=== PATIENT | male | born 2000 | race Two or more races ===

== ENCOUNTER 2021-02-05 16:32 | Emergency (ER) | payer BC, SELFPAY ==
--- NOTE | 2021-02-05 16:49 | HMH.EDUTC ---
[facility] [place] Disposition Condition on Discharge: Good <William Padilla - Last Filed: 02/05/21 18:51> <Luke Reveles - Last Filed: 02/06/21 12:54> Clinical Impression: Peptic ulcer disease Disposition: Home, Self-Care Instructions: DI for Dyspepsia Prescriptions: Sucralfate [Carafate 1gm Tab] 1 gm PO BID #10 tab Transmission Status: Received by [facility] #[id number] Referrals: PCP,No [Primary Care Provider] - Deshaun Gonsales MD [Staff Physician] - Medical Decision Making - Medical Records Medical records reviewed: Yes: I reviewed the patient's medical records. - Oliver Inquiry Pt receiving controlled substance: No - Lab Data Result diagrams: 02/05/21 17:30 02/05/21 17:30 - CT Data CT Scan: Abdomen, Pelvis Time Received: 18:[address] Reviewed: Yes: I have reviewed the patient's CT results, I have viewed the radiologist's interpretation Preliminary Findings: Normal/NAD - Reevaluation(s) Time: 18:56 <William Padilla - Last Filed: 02/05/21 18:51> - Medical Records Medical records reviewed: No: I reviewed the patient's medical records. - Oliver Bundy Pt receiving controlled substance: No - Lab Data Result diagrams: 02/05/21 17:30 02/05/21 17:30 <Luke Reveles - Last Filed: 02/06/21 12:54> Vital Signs: 02/05/21 16:57 02/05/21 17:08 02/05/21 19:02 Temperature 98.2 F 98.7 F 98 F Temperature Source Tympanic Oral Oral Pulse Rate 78 Pulse Rate [Right] 110 H 105 H Respiratory Rate 16 16 16 Blood Pressure 138/72 Blood Pressure [Right Arm] 146/72 H 137/81 Blood Pressure Mean [Right Arm] 96 99 Blood Pressure Source [Right Arm] Automatic Cuff Blood Pressure Position Sitting Blood Pressure Position [Right Arm] Sitting Sitting 02 Sat by Pulse Oximetry 96 98 Oxygen Delivery Method Room Air Room Air Room Air - Lab Data Lab Results 02/05/21 17:30: WBC 6.6, RBC 5.09, Hgb 16.4, Hct 47.2, MCV 92.7, MCH 32.1 H, MCHC 34.7, RDW 13.1, Plt Count 194, MPV 7.9, Neut % (Auto) 60.9, Lymph % (Auto) 29.6, [place] % (Auto) 6.6, Eos % (Auto) 2.2, Baso % (Auto) 0.8, Neut # (Auto) 4.0, Lymph # (Auto) 2.0, [place] # (Auto) 0.4, Eos # (Auto) 0.2, Baso # (Auto) 0.1 02/05/21 17:30: Sodium 141, Potassium 4.1, Chloride 105, Carbon Dioxide 23, Anion Gap 17.1 H, BUN 11, Creatinine 1.00, Estimated Creat Clear 121, Estimated GFR 95, Est GFR ( Amer) 115, Glucose 93, Calcium 9.8, Total Bilirubin 1.3, AST 36, ALT 15, Alkaline Phosphatase 74, Total Protein 8.6 H, Albumin 4.9, Globulin 3.7 H, Albumin/Globulin Ratio 1.3, Lipase 86 02/05/21 18:05: Lactate 2.4 H 02/05/21 18:52: Urine Color Yellow, Urine Appearance Clear, Urine pH 6.0, Ur Specific [place] 1.025, Urine Protein Negative, Urine Glucose (UA) Negative, Urine Ketones Negative, Urine Blood Negative, Urine Nitrate Negative, Urine Bilirubin Negative, Urine Urobilinogen 0.2, Ur Leukocyte Esterase Negative, Urine RBC None, Urine WBC Occasional, Ur Squamous Epith Cells None, Urine Bacteria None Orders (Tests/Meds): ED MEDICATIONS Discontinued Medications Generic Name Dose Route Start Last Admin Trade Name Carole PRN Reason Stop Dose Admin Famotidine 20 mg 02/05/21 17:22 02/05/21 17:43 Famotidine 20mg/2ml Vial IV 02/05/21 17:23 20 mg ONCE ONE Administration Sodium Chloride 1,000 mls @ 999 mls/hr 02/05/21 17:30 02/05/21 17:44 Sod Chlor 0.9% 1000ml Bag IV 02/05/21 18:30 999 mls/hr .Q1H1M RICKY Administration Ondansetron HCl 4 mg 02/05/21 17:21 02/05/21 17:43 Ondansetron 4mg/2ml Vial IV 02/05/21 17:22 4 mg ONCE ONE Administration Sodium Chloride 8 ml 02/05/21 17:22 02/05/21 17:44 Sodium Chloride 0.9% 10ml Vial IV 03/07/21 17:21 8 ml NEEDED PRN Administration dilute pepcid - CT Data Findings Narrative: Constipation (William Padilla) - Reevaluation(s) Reevaluation #1: On reevaluation, the patient is feeling better. Repeat abdominal exam is benign. No acute abdomen. Patient is tolera
[2021-02-05 16:57] VITALS: BP 146/72; PULSE 110; RESP 16; TEMP 36.8; O2SAT 96; BMI 21.7
[2021-02-05 17:08] VITALS: BP 137/81; PULSE 105; RESP 16; TEMP 37.1; O2SAT 98; BMI 21.7
--- NOTE | 2021-02-05 17:22 | CT_ITS ---
PROCEDURE: CT ABDOMEN PELVIS WO CON CLINICAL INDICATION: pain Right-sided abdominal pain COMPARISON: No exams were available for comparison TECHNIQUE: Axial images obtained with sagittal and coronal reformats. All CT scans at the facility use one or more dose reduction, viz: automated exposure control, ma/kV adjustment per patient size (including targeted exams where dose is matched to indication, i.e. head), or iterative reconstruction technique. FINDINGS: LOWER THORAX: No acute finding ABDOMEN & PELVIS: The liver, spleen, pancreas, adrenal glands, and kidneys have unremarkable unenhanced CT appearance. Mild distention of the stomach. Moderate amount of retained colonic feces. The appendix is not clearly delineated with certainty. Multiple unopacified bowel loops in the abdomen or pelvis which could obscure or mimic pathology. If symptoms persist, consider repeat exam with IV and oral contrast. Mildly distended urinary bladder. No intestinal obstruction or free air.. No acute bony findings. IMPRESSION: Moderate amount of retained colonic feces. Multiple unopacified bowel loops in the abdomen or pelvis which could obscure or mimic pathology. If symptoms persist, consider repeat exam with IV and oral contrast.. No definite acute finding. Dictated by: Ross Shah MD 02/06/2021 06:24 Ross Shah MD in [facility] 02/06/2021 06:24
[2021-02-05 17:46] LABS: Basophils # 0.1 K/mm3 (0-0.2); Basophils % 0.8 % (0.1-2.0); Eosinophils # 0.2 K/mm3 (0.0-0.4); Eosinophils % 2.2 % (0.1-12.0); Hematocrit 47.2 % (42.0-52.0); Hemoglobin 16.4 g/dL (14.1-18.0); Lymphocytes % 29.6 % (10-50); Mean Corpuscular HGB Conc 34.7 g/dL (31.8-35.4); Mean Corpuscular Hemoglobin 32.1 pg (27.0-31.2); Mean Corpuscular Volume 92.7 fl (80-94); Mean Platelet Volume 7.9 fl (7.4-10.4); Monocytes # 0.4 K/mm3 (0.1-1.0); Monocytes % 6.6 % (1.7-9.3); Neutrophils % 60.9 % (37.0-80.0); Platelet Count 194 K/mm3 (142-424); Red Blood Count 5.09 M/mm3 (4.60-6.20); Red Cell Distribution Width 13.1 % (11.5-17.5); White Blood Count 6.6 K/mm3 (4.5-13.0)
[2021-02-05 17:48] LABS: Chloride 105 mmol/L (98-107); Potassium 4.1 mmoL/L (3.5-5.1); Sodium 141 mmol/L (136-145)
[2021-02-05 17:50] LABS: Blood Urea Nitrogen 11 mg/dl (9-20); Creatinine Clearance Estimated 121 mL/min (50-200); Estimated Glomerular Filt Rate 95 ml/min (>60); GFR (African American) 115 ML/MIN (>60)
[2021-02-05 17:51] LABS: Alanine Aminotransferase 15 U/L (12-78); Albumin Level 4.9 g/dl (3.5-5.0); Albumin/Globulin Ratio 1.3 (1.1-1.8); Alkaline Phosphatase 74 U/L (38-126); Anion Gap 17.1 mEq/L (5-15); Aspartate Amino Transferase 36 U/L (17-59); Bilirubin,Total 1.3 mg/dl (0.2-1.3); Calcium 9.8 mg/dl (8.4-10.2); Carbon Dioxide 23 mmol/L (22.0-30.0); Globulin 3.7 g/dL (1.3-3.2); Glucose 93 mg/dl (74-100); Lipase 86 U/L (23-300); Total Protein,Serum 8.6 g/dl (6.3-8.2)
[2021-02-05 18:22] LABS: Lactic Acid 2.4 mmol/L (0.7-2.1)
[2021-02-05 18:57] LABS: Microscopic, Urine URINE MICROSCOPIC (MICROSCOPIC)
[2021-02-05 18:59] LABS: Appearance,Urine CLEAR (Clear); Bilirubin,Urine Negative (Negative); Blood, Urine Negative (Negative); Color,Urine YELLOW (Yellow); Glucose,Urine (UA) Negative (Negative); Ketones,Urine Negative (Negative); Leukocyte Esterase,Urine Negative (Negative); Nitrate,Urine Negative (Negative); Protein,Urine Negative (Negative); Specific Gravity, Urine 1.025 (1.005-1.030); Urobilinogen,Urine 0.2 EU/dl (0.2)
[2021-02-05 19:02] VITALS: BP 138/72; PULSE 78; RESP 16; TEMP 36.6; O2SAT 98
[2021-02-05 19:55] LABS: WBC,Urine Occasional #/hpf (0-3)
== END 2021-02-05 19:04 | disposition home or self-care (01) ==
LOC: UTC 16:48 → ER 17:04
PROVIDERS: Emergency Provider Emergency Medicine
DX: K27.9 Peptic ulcer, site unspecified, unspecified as acute or chronic, without hemorrhage or perforation (principal); F17.210 Nicotine dependence, cigarettes, uncomplicated
CPT/HCPCS: 74176; 80053; 81001; 83605; 83690; 85025; 96365; 96376; 99282; J2405

== ENCOUNTER → 2021-02-12 08:35 | Outpatient (CLI) | payer BC, SELFPAY ==
--- NOTE | 2021-02-12 08:40 | US_ITS ---
PROCEDURE: US GALLBLADDER CLINICAL INDICATION: RUQ Pain COMPARISON: No exams were available for comparison FINDINGS: Pancreas: Pancreas has an unremarkable appearance. Pancreatic tail is not well delineated. Liver: Unremarkable. There is appropriate direction of blood flow within a non dilated portal vein. Right kidney: Unremarkable appearing. No hydronephrosis. Gallbladder: No stones are evident. There is no gallbladder wall thickening. Common duct is normal in diameter. IMPRESSION: Negative gallbladder ultrasound. No stones evident. Dictated by: Ross Shah MD 02/12/2021 14:39 Ross Shah MD in [facility] 02/12/2021 14:39
== END ==
PROVIDERS: PCP Nurse Practitioner Family; Visit Provider Nurse Practitioner Family
DX: R10.11 Right upper quadrant pain (principal)
CPT/HCPCS: 76705

== ENCOUNTER 2021-02-18 21:47 | Emergency (ER) | payer BC, SELFPAY ==
[2021-02-18 21:49] VITALS: BP 131/66; PULSE 97; RESP 16; TEMP 36.4; O2SAT 96; BMI 21.7
--- NOTE | 2021-02-18 22:11 | CT_ITS ---
PROCEDURE: CT ABDOMEN PELVIS W CON CLINICAL INDICATION: abd pain Abdominal pain with vomiting, right-sided abdominal pain COMPARISON: CT CT ABDOMEN PELVIS WO CON from 02/05/2021 TECHNIQUE: IV Contrast: 75ML Isovue 370 Oral Contrast None Axial images obtained with sagittal and coronal reformats. All CT scans at the facility use one or more dose reduction, viz: automated exposure control, ma/kV adjustment per patient size (including targeted exams where dose is matched to indication, i.e. head), or iterative reconstruction technique. FINDINGS: LOWER THORAX: No acute finding ABDOMEN & PELVIS: Stomach is mildly distended. The liver, spleen, adrenal glands, pancreas, and kidneys have an unremarkable appearance. There is a mild amount of retained colonic feces. Multiple unopacified bowel loops in the abdomen or pelvis which could obscure or mimic pathology. If symptoms persist, consider repeat exam with IV and oral contrast.. The appendix is not clearly delineated. No evidence of appendicitis. No intestinal obstruction or free air. No acute bony findings. IMPRESSION: Mildly distended stomach. Please correlate clinically for the possibility of gastro paresis. Mild amount of retained colonic feces. Multiple unopacified bowel loops in the abdomen or pelvis which could obscure or mimic pathology. If symptoms persist, consider repeat exam with IV and oral contrast. Dictated by: Ross Shah MD 02/19/2021 07:00 Ross Shah MD in [facility] 02/19/2021 07:00
[2021-02-18 22:24] LABS: Basophils # 0.1 K/mm3 (0-0.2); Eosinophils # 0.1 K/mm3 (0.0-0.4); Eosinophils % 1.5 % (0.1-12.0); Hematocrit 46.9 % (42.0-52.0); Hemoglobin 15.8 g/dL (14.1-18.0); Lymphocytes # 2.5 K/mm3 (0.7-4.5); Lymphocytes % 38.5 % (10-50); Mean Corpuscular HGB Conc 33.7 g/dL (31.8-35.4); Mean Corpuscular Hemoglobin 31.8 pg (27.0-31.2); Mean Corpuscular Volume 94.2 fl (80-94); Mean Platelet Volume 7.7 fl (7.4-10.4); Monocytes # 0.4 K/mm3 (0.1-1.0); Monocytes % 5.8 % (1.7-9.3); Neutrophils # 3.5 K/mm3 (1.8-7.8); Neutrophils % 53.2 % (37.0-80.0); Platelet Count 238 K/mm3 (142-424); Red Blood Count 4.97 M/mm3 (4.60-6.20); Red Cell Distribution Width 12.9 % (11.5-17.5); White Blood Count 6.6 K/mm3 (4.5-13.0)
[2021-02-18 22:32] LABS: Alanine Aminotransferase 16 U/L (12-78); Albumin Level 5.1 g/dl (3.5-5.0); Albumin/Globulin Ratio 1.5 (1.1-1.8); Alkaline Phosphatase 61 U/L (38-126); Amylase 160 U/L (30-110); Aspartate Amino Transferase 37 U/L (17-59); Bilirubin,Total 1.1 mg/dl (0.2-1.3); Blood Urea Nitrogen 14 mg/dl (9-20); Calcium 9.4 mg/dl (8.4-10.2); Carbon Dioxide 25 mmol/L (22.0-30.0); Chloride 104 mmol/L (98-107); Creatinine Clearance Estimated 110 mL/min (50-200); Estimated Glomerular Filt Rate 85 ml/min (>60); GFR (African American) 103 ML/MIN (>60); Globulin 3.3 g/dL (1.3-3.2); Glucose 102 mg/dl (74-100); Lipase 121 U/L (23-300); Sodium 140 mmol/L (136-145); Total Protein,Serum 8.4 g/dl (6.3-8.2)
[2021-02-18 22:44] LABS: C-Reactive Protein < 0.3 mg/L (0-4)
[2021-02-18 22:54] LABS: Erythrocyte Sedimentation Rate 6 mm/hr (0-15); Procalcitonin < 0.030 ng/mL (0.0-2.0)
--- NOTE | 2021-02-18 23:35 | HMH.EDNVD ---
ED Disposition Clinical Impression: Vasovagal episode Abdominal pain Qualifiers: Abdominal location: epigastric Qualified Code(s): R10.13 - Epigastric pain Disposition: Home, Self-Care Condition on Discharge: Good Instructions: DI for Acute Abdominal Pain Additional Instructions: use meds and call pcp in am Referrals: Taj Campa APRN [Primary Care Provider] - - Critical Care Critical Care Time: No Attestation: On 02/18/21, the high probability of a clinically significant, sudden or life threatening deterioration of the following system(s) required my full and direct attention, intervention and personal management. The time I documented below is in addition to time spent performing reported procedures but includes the following listed in this critical care notation. Medical Decision Making - Medical Records Medical records reviewed: Yes: I reviewed the patient's medical records. - Oliver Inquiry Pt receiving controlled substance: No Vital Signs: 02/18/21 21:49 Temperature 97.5 F L Temperature Source Oral Pulse Rate [Right] 97 H Respiratory Rate 16 Blood Pressure [Right Arm] 131/66 Blood Pressure Mean [Right Arm] 87 02 Sat by Pulse Oximetry 96 - Lab Data Lab results reviewed: Yes: I reviewed the patient's lab results. Lab Results 02/18/21 22:10: WBC 6.6, RBC 4.97, Hgb 15.8, Hct 46.9, MCV 94.2 H, MCH 31.8 H, MCHC 33.7, RDW 12.9, Plt Count 238, MPV 7.7, Neut % (Auto) 53.2, Lymph % (Auto) 38.5, [place] % (Auto) 5.8, Eos % (Auto) 1.5, Baso % (Auto) 1.0, Neut # (Auto) 3.5, Lymph # (Auto) 2.5, [place] # (Auto) 0.4, Eos # (Auto) 0.1, Baso # (Auto) 0.1, ESR 6 02/18/21 22:10: Sodium 140, Potassium 5.0, Chloride 104, Carbon Dioxide 25, Anion Gap 16.0 H, BUN 14, Creatinine 1.10, Estimated Creat Clear 110, Estimated GFR 85, Est GFR ( Amer) 103, Glucose 102 H, Calcium 9.4, Total Bilirubin 1.1, AST 37, ALT 16, Alkaline Phosphatase 61, C-Reactive Protein < 0.3, Total Protein 8.4 H, Albumin 5.1 H, Globulin 3.3 H, Albumin/Globulin Ratio 1.5, Amylase 160 H, Lipase 121, Procalcitonin < 0.030 Result diagrams: 02/18/21 22:10 02/18/21 22:10 Orders (Tests/Meds): ED MEDICATIONS Generic Name Dose Route Start Last Admin Trade Name Freq PRN Reason Stop Dose Admin Sodium Chloride 1,000 mls @ 999 mls/hr 02/18/21 22:15 02/18/21 22:14 Sod Chlor 0.9% 1000ml Bag IV 02/18/21 23:15 999 mls/hr .Q1H1M RICKY Administration Sodium Chloride 8 ml 02/18/21 22:12 Sodium Chloride 0.9% 10ml Vial IV 03/20/21 22:11 NEEDED PRN dilute pepcid Discontinued Medications Generic Name Dose Route Start Last Admin Trade Name Freq PRN Reason Stop Dose Admin Famotidine 20 mg 02/18/21 22:12 02/18/21 22:14 Famotidine 20mg/2ml Vial IV 02/18/21 22:13 20 mg ONCE ONE Administration Iopamidol 70 ml 02/18/21 23:07 02/18/21 23:09 Iopamidol-370 (76%);100ml Bottle IV 02/18/21 23:08 70 ml ONCE ONE Administration Ketorolac Tromethamine 30 mg 02/18/21 22:12 02/18/21 22:14 Ketorolac 30mg/Ml Vial IV 02/18/21 22:13 30 mg ONCE ONE Administration Metoclopramide HCl 10 mg 02/18/21 22:12 02/18/21 22:14 Metoclopramide Hcl 10mg/2ml Vial IVP 02/18/21 22:13 10 mg ONCE ONE Administration Ondansetron HCl 4 mg 02/18/21 22:12 02/18/21 22:14 Ondansetron 4mg/2ml Vial IV 02/18/21 22:13 4 mg ONCE ONE Administration Sodium Chloride 10 ml 02/18/21 23:07 02/18/21 23:09 Sodium Chloride 0.9% 10ml Syr (Rad Only) IV 02/18/21 23:08 10 ml ONCE ONE Administration ORDERS Category Date Time Status CT abdomen pelvis w con Stat Cat Scan 02/18/21 22:11 Taken Urinalysis and Microscopic Stat Lab 02/18/21 22:11 Ordered - CT Data CT Scan: Abdomen, Pelvis Time Received: 23:[address] Reviewed: Yes: I have viewed the radiologist's interpretation Preliminary Findings: Normal/NAD Medical Decision Narrative: pt with prob vasovagal episodes assoc with ulcer dis will need f
[2021-02-19 00:10] VITALS: BP 134/78; PULSE 87; RESP 14; TEMP 36.5; O2SAT 98
== END 2021-02-19 00:24 | disposition home or self-care (01) ==
PROVIDERS: Emergency Provider Emergency Medicine; PCP Nurse Practitioner Family
DX: R55 Syncope and collapse (principal); R10.13 Epigastric pain
CPT/HCPCS: 74177; 80053; 82150; 83690; 84145; 85025; 85651; 86140; 96375; 99282; J2405; Q9967

== ENCOUNTER → 2021-03-05 10:08 | Outpatient (CLI) | payer BC, SELFPAY ==
--- NOTE | 2021-03-05 10:17 | NM_ITS ---
PROCEDURE: NM HEPATOBILIARY WO PHARM CLINICAL INDICATION: abd pain Right upper quadrant pain COMPARISON: No exams were available for comparison TECHNIQUE: DOSE: 7.90 mCi technetium Choletec Fatty meal with Ensure FINDINGS: Homogeneous activity is present within the hepatic parenchyma. Activity is present in the gallbladder by 4 minutes. Activity is present in the small bowel by 13 minutes. The gallbladder ejection fraction is calculated to be 97 percent. No pain reported with fatty meal. IMPRESSION: Unremarkable hepatobiliary scan with normal gallbladder ejection fraction Dictated by: Ross Shah MD 03/05/2021 15:25 Ross Shah MD in [facility] 03/05/2021 15:25
--- NOTE | 2021-03-05 11:03 | HMH.ITSHM ---
Current Home Medications as stated by this patient Jose Robins or technology sales representative. []PEPCID
== END ==
PROVIDERS: PCP Physician Assistant; Visit Provider Physician Assistant
DX: R10.9 Unspecified abdominal pain (principal)
CPT/HCPCS: 78226; A9537

== ENCOUNTER 2021-03-28 10:11 | Emergency (ER) | payer BC, SELFPAY ==
[2021-03-28 10:17] VITALS: BP 137/87; PULSE 74; RESP 17; TEMP 36.7; O2SAT 97; BMI 21.7
--- NOTE | 2021-03-28 10:24 | HMH.EDUTC ---
[facility] [place] Clinical Impression: Right shoulder pain Qualifiers: Chronicity: acute Qualified Code(s): M25.511 - Pain in right shoulder Disposition: Home, Self-Care Condition on Discharge: Good Instructions: DI for Shoulder Pain Additional Instructions: Rest the extremity, Elevate the extremity as tolerated while you are resting. Take ibuprofen for pain. I sent in a prescription to your pharmacy. Follow up with Dr. Kaye (orthopedics). I put in a referral but you need to call his office and schedule an appointment. Follow up with your regular doctor. We will give you a list of primary care physicians that are taking new patients. GO TO THE ER FOR ANY WORSENING SYMPTOMS Prescriptions: Ibuprofen [Ibuprofen 800mg Tablet] 800 mg PO Q8HP PRN #30 tab PRN Reason: Moderate Pain Transmission Status: Received by [facility] Referrals: Petey Cortes MD [Primary Care Provider] - Forms: Work/School Release Time of Disposition: 10:36 Medical Decision Making - Medical Records Medical records reviewed: No: I reviewed the patient's medical records. - Oliver Inquiry Pt receiving controlled substance: No Vital Signs: 03/28/21 10:17 03/28/21 10:25 Temperature 98.0 F 98.0 F Temperature Source Oral Oral Pulse Rate 74 Pulse Rate [Left] 74 Respiratory Rate 17 17 Blood Pressure 137/87 Blood Pressure [Right Arm] 137/87 Blood Pressure Mean [Right Arm] 103 Blood Pressure Source Automatic Cuff Blood Pressure Source [Right Arm] Automatic Cuff Blood Pressure Position Sitting Blood Pressure Position [Right Arm] Sitting 02 Sat by Pulse Oximetry 97 Oxygen Delivery Method Room Air Room Air [facility] [place] - General Stated complaint: right shoulder pain, no accident Time Seen by Provider: 03/28/21 10:24 Mode of Arrival: Ambulatory Source of Information: Patient Limitations: No Limitations Description of Symptoms (Recalled from Triage Doc. by RN): right shoulder pain x 1year and has gotten worse HEENT Symptoms (Recalled from RN notes): No Resp Symptoms (Recalled from RN notes): No Skin Symptoms (Recalled from RN notes): No MS Symptoms (Recalled from RN notes): Yes Functional Status (Recalled from RN notes): wnl - History of Present Illness Provider Complaint: He states that he has a long history of right shoulder pain. He originally hurt it playing school sports. He has been taking ibuprofen and naproxen for his pain, but he states that they are not helping very much. He has had it x-rayed multiple times in the past. He has never followed up with ortho to have mri or other things done. - Related Data Home Medications Medication Instructions Recorded Confirmed Famotidine [Pepcid] 20 mg PO DAILY 02/05/21 03/12/21 Previous Rx's Medication Instructions Recorded dicyclomine 10 mg capsule 10 mg PO BID #60 cap 02/06/21 omeprazole 40 mg capsule,delayed 40 mg PO ONCE #90 cap 03/12/21 release sucralfate 1 gram tablet 1 g PO QACHS #120 tab 03/12/21 hyoscyamine sulfate 0.375 mg 0.375 mg PO Q12H #60 tab 03/14/21 tablet,extended release,12 hr Ibuprofen [Ibuprofen 800mg 800 mg PO Q8HP PRN #30 tab 03/28/21 Tablet] Allergies Allergy/AdvReac Type Severity Reaction Status Date / Time No Known Allergies Allergy Verified 03/28/21 10:28 - Worker's Comp Is this a Worker's Comp case?: No [facility] History - Hepatitis A Screen Drug use history?: No High risk sexual behaviors?: No History of sexually transmitted infection?: No Currently employed?: No Childcare worker?: No Do you have indoor plumbing?: Yes Do you have electricity?: Yes Attestation statement:: This patient has been screened for Hepatitis A risk factors. I have reviewed the patient's past medical history: Yes Medical History: Denies:: Cancer, Diabetes Mellitus Type 1, Diabetes Mellitus Type 2, MRSA Other Surgeries: Yes: No Previous Surgery Amputation: No - Social History Smoking Status: Current wanda
[2021-03-28 10:25] VITALS: BP 137/87; PULSE 74; RESP 17; TEMP 36.7; O2SAT 97
== END 2021-03-28 10:38 | disposition home or self-care (01) ==
PROVIDERS: Emergency Provider Nurse Practitioner Family; PCP Emergency Medicine
DX: M25.511 Pain in right shoulder (principal); F17.210 Nicotine dependence, cigarettes, uncomplicated
CPT/HCPCS: 99202; G0463

== ENCOUNTER 2021-03-29 01:14 | Emergency (ER) | payer BC, SELFPAY ==
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
[2021-03-29 01:31] VITALS: BP 144/54; PULSE 76; RESP 18; TEMP 36.4; O2SAT 98; BMI 21.7
--- NOTE | 2021-03-29 02:10 | PC.NURSE ---
[facility] office and zainab sullivan at bed side.
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
[2021-03-29 02:45] VITALS: BP 136/76; PULSE 74; RESP 16; TEMP 36.3; O2SAT 98
== END 2021-03-29 02:50 | disposition home or self-care (01) ==
PROVIDERS: Emergency Provider Emergency Medicine; PCP Physician Assistant
DX: S71.111A Laceration without foreign body, right thigh, initial encounter (principal); X99.1XXA Assault by knife, initial encounter; Y92.9 Unspecified place or not applicable; Z23 Encounter for immunization
CPT/HCPCS: 12002; 90471; 90714; 99282

== ENCOUNTER 2021-04-09 18:24 | Emergency (ER) | payer BC, SELFPAY ==
[2021-04-09 19:00] VITALS: BP 116/75; PULSE 102; RESP 19; TEMP 37.1; O2SAT 100; BMI 19.3
[2021-04-09 19:22] LABS: UTC Strep Screen (Rapid) Negative (Negative)
--- NOTE | 2021-04-09 19:25 | HMH.EDUTC ---
[facility] [place] Clinical Impression: Upper respiratory infection, viral Disposition: Home, Self-Care Condition on Discharge: Good Instructions: DI for Viral Upper Respiratory Infection -- Adult Additional Instructions: No sign of a bacterial infection. Likely viral. Viruses can take 7-14 days to run their course. Nasal saline and bulb syringe or nose Daja to remove nasal drainage to help with nasal congestion. Hard to eat, drink, sleep with nasal congestion so important to keep this cleaned out. Monitor temp. Tylenol or Motrin as needed for pain or fever Encourage fluids, water, Gatorade, Powerade, Pedialyte if /toddler/child Warm salt water gargles Warm fluids Sore throat lozenges Sleep elevated Follow-up immediately for new or worsening symptoms or no noticeable improvement over the next 48-72 hours. Referrals: Anabelle Arizmendi PA [Primary Care Provider] - Time of Disposition: 19:37 Medical Decision Making - Loiver Inquiry Pt receiving controlled substance: No Vital Signs: 04/09/21 19:00 Temperature 98.7 F Temperature Source Oral Pulse Rate [Right Brachial] 102 H Respiratory Rate 19 Blood Pressure [Right Arm] 116/75 Blood Pressure Mean [Right Arm] 88 Blood Pressure Source [Right Arm] Automatic Cuff Blood Pressure Position [Right Arm] Sitting 02 Sat by Pulse Oximetry 100 Oxygen Delivery Method Room Air - Lab Data Lab Results 04/09/21 19:19: Strep Scn Rapid Clinic Negative Orders (Tests/Meds): ORDERS Category Date Time Status Strep Screen Confirmation Stat Micro 04/09/21 19:19 Received [facility] [place] - General Chief complaint: [facility] Stated complaint: sore throat,FU removal of stiches Time Seen by Provider: 04/09/21 19:33 Mode of Arrival: Ambulatory Source of Information: Patient Limitations: No Limitations Description of Symptoms (Recalled from Triage Doc. by RN): PATIENT C/O SORE THROAT, HEADACHE, AND CHILLS. ALSO NEEDS STITCHES REMOVED HEENT Symptoms (Recalled from RN notes): Yes Resp Symptoms (Recalled from RN notes): No Skin Symptoms (Recalled from RN notes): No MS Symptoms (Recalled from RN notes): No Functional Status (Recalled from RN notes): WNL - History of Present Illness Provider Complaint: 20 yr old male presents for sore throat,cough, nasal congestion and sinus pressure. pt states he also needs his stitches out. refused covid test - Related Data Home Medications Medication Instructions Recorded Confirmed Famotidine [Pepcid] 20 mg PO DAILY 02/05/21 04/04/21 Previous Rx's Medication Instructions Recorded dicyclomine 10 mg capsule 10 mg PO BID #60 cap 02/06/21 omeprazole 40 mg capsule,delayed 40 mg PO ONCE #90 cap 03/12/21 release sucralfate 1 gram tablet 1 g PO QACHS #120 tab 03/12/21 hyoscyamine sulfate 0.375 mg 0.375 mg PO Q12H #60 tab 03/14/21 tablet,extended release,12 hr Ibuprofen [Ibuprofen 800mg 800 mg PO Q8HP PRN #30 tab 03/28/21 Tablet] bacitracin 500 unit/gram topical 1 applic TOPICAL BID #28 g 04/04/21 ointment Allergies Allergy/AdvReac Type Severity Reaction Status Date / Time No Known Allergies Allergy Verified 04/04/21 09:49 - Worker's Comp Is this a Worker's Comp case?: No [facility] History - Hepatitis A Screen Drug use history?: No High risk sexual behaviors?: No History of sexually transmitted infection?: No Currently employed?: No Childcare worker?: No Do you have indoor plumbing?: Yes Do you have electricity?: Yes Attestation statement:: This patient has been screened for Hepatitis A risk factors. I have reviewed the patient's past medical history: Yes Medical History: Denies:: Cancer, Diabetes Mellitus Type 1, Diabetes Mellitus Type 2, MRSA Other Surgeries: Yes: No Previous Surgery Amputation: No - Social History Smoking Status: Never smoker Tobacco Type: smokeless tobacco # Packs/Day (cigarettes): 1 Alcohol Intake: never Alcohol Intake Frequency:: a few times a wee
[2021-04-09 19:40] VITALS: BP 116/75; PULSE 102; RESP 19; TEMP 37.1; O2SAT 100; BMI 19.3
[2021-04-09 19:41] VITALS: BP 116/75; PULSE 102; RESP 19; TEMP 37.1; O2SAT 100
== END 2021-04-09 19:42 | disposition home or self-care (01) ==
PROVIDERS: Emergency Provider Nurse Practitioner Family; PCP Physician Assistant
DX: J06.9 Acute upper respiratory infection, unspecified (principal)
CPT/HCPCS: 87880

== ENCOUNTER 2021-05-01 03:08 | Emergency (ER) | payer BC, SELFPAY ==
--- NOTE | 2021-05-01 03:10 | PC.NURSE ---
pt refuses to allow staff to give care. discussed the needs of patient. allowed us to place c-collar. staff at bedside obtaining bloodwork. md at bedside for trauma alert. states we can cancel and work him up here
[2021-05-01 03:16] VITALS: BP 140/80; PULSE 93; RESP 16; TEMP 36.7; O2SAT 98
--- NOTE | 2021-05-01 03:18 | PC.NURSE ---
pt upset with getting stuck for iv access. fsbs reported by electric bath attendant jem as 94 mg/dl. requested friend at bedside (had went out to move his car).
[2021-05-01 03:29] VITALS: BP 139/80; PULSE 94; RESP 16; O2SAT 95; BMI 19.8
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
[2021-05-01 03:32] LABS: POC Glucose,Bedside 94 (70-110)
--- NOTE | 2021-05-01 03:35 | ECG_ITS ---
APPROVED REPORT Exam: Resting ECG HR:83 bpm ECG Measurements Heart Rate 83 AXES VA 164 P 73 QRSd 106 QRS 61 QT 370 T 59 QTc 434 Conclusion Normal sinus rhythm Normal ECG Electronically signed by : Juan C Lind, 05/01/2021 19:50:19
[2021-05-01 03:36] LABS: Microscopic, Urine URINE MICROSCOPIC (MICROSCOPIC)
[2021-05-01 03:38] LABS: Basophils # 0.1 K/mm3 (0-0.2); Basophils % 0.6 % (0.1-2.0); Eosinophils # 0.1 K/mm3 (0.0-0.4); Eosinophils % 0.7 % (0.1-12.0); Hematocrit 43.7 % (42.0-52.0); Hemoglobin 15.3 g/dL (14.1-18.0); Lymphocytes % 23.2 % (10-50); Mean Corpuscular HGB Conc 35.1 g/dL (31.8-35.4); Mean Corpuscular Hemoglobin 31.9 pg (27.0-31.2); Mean Corpuscular Volume 90.9 fl (80-94); Mean Platelet Volume 7.8 fl (7.4-10.4); Monocytes # 0.5 K/mm3 (0.1-1.0); Monocytes % 5.6 % (1.7-9.3); Neutrophils % 69.9 % (37.0-80.0); Platelet Count 224 K/mm3 (142-424); Red Cell Distribution Width 12.7 % (11.5-17.5); White Blood Count 8.6 K/mm3 (4.5-13.0)
[2021-05-01 03:39] LABS: Appearance,Urine CLEAR (Clear); Bilirubin,Urine Negative (Negative); Blood, Urine Negative (Negative); Color,Urine YELLOW (Yellow); Glucose,Urine (UA) Negative (Negative); Ketones,Urine Negative (Negative); Leukocyte Esterase,Urine Negative (Negative); Nitrate,Urine Negative (Negative); Protein,Urine Negative (Negative); Specific Gravity, Urine <= 1.005 (1.005-1.030); Urobilinogen,Urine 0.2 EU/dl (0.2)
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
[2021-05-01 03:43] LABS: Chloride 100 mmol/L (98-107); Potassium 3.5 mmoL/L (3.5-5.1); Sodium 138 mmol/L (136-145)
[2021-05-01 03:45] LABS: Amylase 91 U/L (30-110); Bacteria,Urine Trace /lpf; Blood Urea Nitrogen 14 mg/dl (9-20); Creatinine Clearance Estimated 126 mL/min (50-200); Estimated Glomerular Filt Rate 108 ml/min (>60); GFR (African American) 130 ML/MIN (>60)
[2021-05-01 03:46] LABS: Alanine Aminotransferase 23 U/L (12-78); Albumin Level 4.8 g/dl (3.5-5.0); Albumin/Globulin Ratio 1.5 (1.1-1.8); Alkaline Phosphatase 84 U/L (38-126); Anion Gap 20.5 mEq/L (5-15); Aspartate Amino Transferase 34 U/L (17-59); Bilirubin,Total 1.1 mg/dl (0.2-1.3); Calcium 9.1 mg/dl (8.4-10.2); Carbon Dioxide 21 mmol/L (22.0-30.0); Globulin 3.3 g/dL (1.3-3.2); Glucose 101 mg/dl (74-100); Total Protein,Serum 8.1 g/dl (6.3-8.2)
[2021-05-01 03:47] LABS: Ethyl Alcohol 185 mg/dl (0-10)
[2021-05-01 03:50] LABS: Acetaminophen < 10 ug/ml (10-30); Lipase 52 U/L (23-300); Salicylate < 1.0 mg/dL (2.0-20.0)
[2021-05-01 03:52] LABS: Amphetamine/Metha Screen,Urine Negative ng/ml (<1000); Benzodiazepines Screen,Urine Negative ng/ml (<200)
[2021-05-01 03:53] LABS: Cannabinoid Screen,Urine Negative ng/ml (<50); Methadone Screen,Urine Negative ng/ml (<300)
[2021-05-01 03:54] LABS: Cocaine Screen,Urine Negative ng/ml (<300)
[2021-05-01 03:55] LABS: Opiate Screen,Urine Negative ng/ml (<300); Phencyclidine Screen,Urine Negative ng/ml (<25)
[2021-05-01 03:59] LABS: Barbiturates Screen,Urine Negative ng/ml (<200)
--- NOTE | 2021-05-01 04:00 | PC.NURSE ---
pt up to ct. jem,emt-p at bedside to assist radio tester due to argumentative and uncooperative behavior.
[2021-05-01 04:04] LABS: Troponin I < 0.01 ng/ml (0.00-0.034)
[2021-05-01 04:15] VITALS: BP 127/76; PULSE 77; RESP 14; O2SAT 96
--- NOTE | 2021-05-01 05:00 | PC.NURSE ---
patient elected to leave AMA. discussed possible issues that could arise without him waiting for ct scan results. pt denied wanting to stay. friend (who brought him in) agreed to take responsibility for patient and signed him out due to pt being under the influence of alcohol and not able to sign for himself. both patient and friend, neil, state that they know to come back if anything abnormal arises.
[2021-05-01 05:04] VITALS: BP 120/68; PULSE 96; RESP 14; RESP 16; TEMP 36.7; O2SAT 96; O2SAT 99
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
== END 2021-05-01 06:39 | disposition left against medical advice (07) ==
PROVIDERS: Emergency Provider Emergency Medicine; PCP Physician Assistant
DX: S80.02XA Contusion of left knee, initial encounter (principal); S06.0X0A Concussion without loss of consciousness, initial encounter; W17.81XA Fall down embankment (hill), initial encounter; F17.290 Nicotine dependence, other tobacco product, uncomplicated; F10.920 Alcohol use, unspecified with intoxication, uncomplicated
CPT/HCPCS: 70450; 71045; 72125; 72128; 72131; 72170; 73562; 74177; 80053; 80305; 80329; 81001; 82150; 82962; 83690; 84484; 85025; 93005; 96365; 96375; 99281; Q9967

== ENCOUNTER 2021-05-13 16:28 | Emergency (ER) | payer BC, SELFPAY ==
[2021-05-13 17:10] VITALS: BP 122/72; PULSE 84; RESP 21; TEMP 36.7; O2SAT 98; BMI 20.6
--- NOTE | 2021-05-13 17:52 | HMH.EDUTC ---
[facility] [place]: Bronchitis Sinusitis Qualifiers: Sinusitis location: unspecified location Chronicity: unspecified Qualified Code(s): J32.9 - Chronic sinusitis, unspecified Disposition: Home, Self-Care Condition on Discharge: Good Instructions: Sinusitis, DI for Sinusitis, Acute Bronchitis, Azithromycin Additional Instructions: ? Start antibiotic today. Be sure to complete entire prescription even if feeling better ? Monitor temp. Tylenol every 4 hours as needed and / or ibuprofen every 6 hours as needed ( As long as your primary care physician has told you that it ok to take both. For fever/aches/pains ER if no less than 101 despite Tylenol or Motrin ? Humidifier/vaporizer or hot steamy shower ?? Mucinex for your cough and chest congestion. Be sure to drink lots of water. *Start steroid . Helps with inflammation therefore, cough and wheezing. Follow directions on the package. Reviewed side effects. Patient reports taking them before. Follow up IMMEDIATELY for new or worsening of symptoms OR no noticeable improvement over the next 48-72 hours. 911 immediately for any life threatening symptoms such as chest pain or difficulty breathing Prescriptions: guaiFENesin [Mucinex 600mg tablet] 1 - 2 tab PO Q12H PRN #20 tab.er.12h PRN Reason: Congestion Transmission Status: Pending to [facility] predniSONE [Prednisone 20mg Tab] 20 mg PO BID #10 tab Transmission Status: Pending to [facility] Azithromycin [Z-Noble 250mg Tab] 250 mg PO DIRECTED #6 tab Transmission Status: Pending to [facility] Referrals: Anabelle Arizmendi PA [Primary Care Provider] - As needed Time of Disposition: 18:02 Medical Decision Making - Oliver Inquiry Pt receiving controlled substance: No Oliver was queried for this patient: No Vital Signs: 05/13/21 17:10 Temperature 98.1 F Temperature Source Oral Pulse Rate [Left Brachial] 84 Respiratory Rate 21 Blood Pressure [Left Arm] 122/72 Blood Pressure Mean [Left Arm] 88 Blood Pressure Source [Left Arm] Automatic Cuff Blood Pressure Position [Left Arm] Sitting 02 Sat by Pulse Oximetry 98 Oxygen Delivery Method Room Air Medical Decision Narrative: Recommended CXR and patient declined at this time states that he will come back and get it if he doesnt get better [facility] UTC HPI - General Stated complaint: chest congestion Time Seen by Provider: 05/13/21 17:52 Mode of Arrival: Ambulatory Source of Information: Patient Limitations: No Limitations Description of Symptoms (Recalled from Triage Doc. by RN): PATIENT PRODUCTIVE COUGH, CONGESTION, AND BURNING IN HIS CHEST X 1.5 WEEKS. STATES HE DID RUN A FEVER A FEW DAYS AGO HEENT Symptoms (Recalled from RN notes): Yes Resp Symptoms (Recalled from RN notes): Yes Skin Symptoms (Recalled from RN notes): No MS Symptoms (Recalled from RN notes): No Functional Status (Recalled from RN notes): WNL - History of Present Illness Provider Complaint: Patient states that he has been having sinus congestion, pressure in his ears, cough and burning like feeling in chest at times when he coughs for about 1.5-2 weeks State that he thought it was his allergies at first but now he is blowing greenish yellow out of his nose and coughing it up at times and thinks he may need some antibiotics Denies exposure to COVID - Related Data Previous Rx's Medication Instructions Recorded Azithromycin [Z-Noble 250mg Tab] 250 mg PO DIRECTED #6 tab 05/13/21 guaiFENesin [Mucinex 600mg tablet] 1 - 2 tab PO Q12H PRN #20 05/13/21 tab.er.12h predniSONE [Prednisone 20mg 20 mg PO BID #10 tab 05/13/21 Tab] Allergies Allergy/AdvReac Type Severity Reaction Status Date / Time No Known Allergies Allergy Verified 04/04/21 09:49 - Worker's Comp Is this a Worker's Comp case?: No [facility] History - Hepatitis A Screen Drug use history?: No High risk sexual behaviors?: No History of sexually transmitted infection?: No
[2021-05-13 17:55] VITALS: BP 122/72; PULSE 84; RESP 21; TEMP 36.7; O2SAT 98
== END 2021-05-13 18:00 | disposition home or self-care (01) ==
PROVIDERS: Emergency Provider Nurse Practitioner; PCP Physician Assistant
DX: J32.9 Chronic sinusitis, unspecified (principal); F17.290 Nicotine dependence, other tobacco product, uncomplicated
CPT/HCPCS: 99202; G0463

== ENCOUNTER 2021-05-25 22:53 | Emergency (ER) | payer OTHER, BC, SELFPAY ==
[2021-05-25 22:56] VITALS: BP 124/76; PULSE 84; RESP 16; TEMP 36.9; O2SAT 98; BMI 21.7
[2021-05-25 23:06] VITALS: BMI 21.7
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
[2021-05-25 23:24] LABS: Basophils # 0.1 K/mm3 (0-0.2); Basophils % 0.7 % (0.1-2.0); Eosinophils # 0.1 K/mm3 (0.0-0.4); Eosinophils % 1.4 % (0.1-12.0); Hematocrit 45.3 % (42.0-52.0); Hemoglobin 15.7 g/dL (14.1-18.0); Lymphocytes % 23.2 % (10-50); Mean Corpuscular HGB Conc 34.6 g/dL (31.8-35.4); Mean Corpuscular Hemoglobin 31.6 pg (27.0-31.2); Mean Corpuscular Volume 91.5 fl (80-94); Mean Platelet Volume 7.8 fl (7.4-10.4); Monocytes # 0.6 K/mm3 (0.1-1.0); Monocytes % 6.7 % (1.7-9.3); Platelet Count 229 K/mm3 (142-424); Red Blood Count 4.96 M/mm3 (4.60-6.20); Red Cell Distribution Width 12.8 % (11.5-17.5); White Blood Count 8.8 K/mm3 (4.5-13.0)
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
[2021-05-25 23:28] LABS: Chloride 103 mmol/L (98-107); Potassium 3.9 mmoL/L (3.5-5.1); Sodium 140 mmol/L (136-145)
[2021-05-25 23:31] LABS: Alanine Aminotransferase 28 U/L (12-78); Albumin Level 4.7 g/dl (3.5-5.0); Albumin/Globulin Ratio 1.4 (1.1-1.8); Alkaline Phosphatase 96 U/L (38-126); Anion Gap 15.9 mEq/L (5-15); Aspartate Amino Transferase 32 U/L (17-59); Bilirubin,Total 1.3 mg/dl (0.2-1.3); Blood Urea Nitrogen 12 mg/dl (9-20); Carbon Dioxide 25 mmol/L (22.0-30.0); Creatinine Clearance Estimated 110 mL/min (50-200); Estimated Glomerular Filt Rate 85 ml/min (>60); GFR (African American) 103 ML/MIN (>60); Globulin 3.4 g/dL (1.3-3.2); Total Protein,Serum 8.1 g/dl (6.3-8.2)
[2021-05-25 23:32] LABS: Calcium 9.5 mg/dl (8.4-10.2); Glucose 136 mg/dl (74-100)
--- NOTE | 2021-05-25 23:35 | PC.NURSE ---
pt gone to radiology.
[2021-05-25 23:45] VITALS: BP 122/85; PULSE 80; O2SAT 97
[2021-05-26 00:01] VITALS: BP 123/82; PULSE 81; O2SAT 96
[2021-05-26 00:03] LABS: C-Reactive Protein 0.5 mg/L (0-4)
[2021-05-26 00:08] LABS: Procalcitonin 0.042 ng/mL (0.0-2.0)
[2021-05-26 00:22] LABS: Erythrocyte Sedimentation Rate 5 mm/hr (0-15)
[2021-05-26 00:29] VITALS: BP 120/74; PULSE 80; RESP 16; TEMP 36.7; O2SAT 97
== END 2021-05-26 00:31 | disposition home or self-care (01) ==
PROVIDERS: Emergency Provider Emergency Medicine; PCP Physician Assistant
DX: S00.93XA Contusion of unspecified part of head, initial encounter (principal); V47.0XXA Car driver injured in collision with fixed or stationary object in nontraffic accident, initial encounter; Y92.488 Other paved roadways as the place of occurrence of the external cause
CPT/HCPCS: 70450; 71045; 72125; 72170; 80053; 84145; 85025; 85651; 86140; 96365; 96375; 99281

== ENCOUNTER 2021-06-01 12:39 | Emergency (ER) | payer BC, SELFPAY ==
[2021-06-01 12:49] VITALS: BP 130/75; PULSE 99; RESP 16; TEMP 36.8; O2SAT 99; BMI 20.9
[2021-06-01 12:51] VITALS: BP 130/75; PULSE 99; RESP 16; TEMP 36.8; O2SAT 99; BMI 21.7
--- NOTE | 2021-06-01 12:55 | XR_ITS ---
PROCEDURE: XR HAND LT MIN 3V CLINICAL INDICATION: crush injury COMPARISON: No exams were available for comparison FINDINGS: No fracture or dislocation. No lytic or blastic change. There is normal mineralization. The joint spaces are well-preserved. No significant degenerative/arthritic changes. No erosive changes evident. Other findings:None. IMPRESSION: No acute findings. Dictated by: Ross Shah MD 06/01/2021 13:21 Ross Shah MD in [place] 06/01/2021 13:21
--- NOTE | 2021-06-01 13:01 | HMH.EDUTC ---
[facility] [place] Disposition Clinical Impression: Crushing injury of left middle finger Qualifiers: Encounter type: initial encounter Qualified Code(s): S67.193A - Crushing injury of left middle finger, initial encounter Subungual hematoma of finger of left hand Qualifiers: Encounter type: initial encounter Qualified Code(s): S60.10XA - Contusion of unspecified finger with damage to nail, initial encounter Disposition: Home, Self-Care Condition on Discharge: Good Instructions: DI for Crush Injury, DI for Nail Bed Injury Additional Instructions: Rest the extremity, Elevate the extremity as tolerated while you are resting. Take ibuprofen for pain. I sent in a prescription to your pharmacy. Follow up with Dr. Kaye (orthopedics) if you continue to have problems. Sometimes there can be fractures that don't show up well on the first set of x-rays. So, you should follow up if you continue to have symptoms. I put in a referral but you need to call his office and schedule an appointment. Follow up with your regular doctor. GO TO THE ER FOR ANY WORSENING SYMPTOMS Prescriptions: Ibuprofen [Ibuprofen 800mg Tablet] 800 mg PO Q8HP PRN #30 tab PRN Reason: Moderate Pain Transmission Status: Received by [facility] Referrals: Anabelle Arizmendi PA [Primary Care Provider] - Kailash Kaye MD [Staff Physician] - Forms: Work/School Release Time of Disposition: 13:36 Medical Decision Making - Medical Records Medical records reviewed: No: I reviewed the patient's medical records. - Oliver Inquiry Pt receiving controlled substance: No Vital Signs: 06/01/21 12:49 06/01/21 12:51 06/01/21 13:36 Temperature 98.3 F 98.3 F 98 F Temperature Source Oral Oral Pulse Rate 96 H Pulse Rate [Right Radial] 99 H 99 H Respiratory Rate 16 16 16 Blood Pressure 129/75 Blood Pressure [Left Arm] 130/75 130/75 Blood Pressure Mean [Left Arm] 93 93 Blood Pressure Source [Left Arm] Automatic Cuff Blood Pressure Position [Left Arm] Sitting 02 Sat by Pulse Oximetry 99 99 Oxygen Delivery Method Room Air Orders (Tests/Meds): ED MEDICATIONS Discontinued Medications Generic Name Dose Route Start Last Admin Trade Name Freq PRN Reason Stop Dose Admin Ibuprofen 800 mg 06/01/21 13:42 06/01/21 13:43 Ibuprofen 400 Mg Tablet PO 06/01/21 13:43 800 mg ONCE ONE Administration - Radiology Data #1 Image(s): Hand Image Reviewed: Yes I reviewed the patient's radiology image, Yes I have reviewed radiologist's interpretation Preliminary Findings: No Fracture Seen PROCEDURE: XR HAND LT MIN 3V CLINICAL INDICATION: crush injury COMPARISON: No exams were available for comparison FINDINGS: No fracture or dislocation. No lytic or blastic change. There is normal mineralization. The joint spaces are well-preserved. No significant degenerative/arthritic changes. No erosive changes evident. Other findings:None. IMPRESSION: No acute findings. Dictated by: Ross Shah MD 06/01/2021 13:21 Ross Shah MD in [place] 06/01/2021 13:21 [facility] [place] HPI - General Stated complaint: [id number] left middle finger pain Time Seen by Provider: 06/01/21 13:32 Mode of Arrival: Ambulatory Source of Information: Patient Limitations: No Limitations Description of Symptoms (Recalled from Triage Doc. by RN): pt slammed his L middle finger in a car door two days ago. pt is now c/o pain in his nail and right above it. there is swelling and bruising present. HEENT Symptoms (Recalled from RN notes): No Resp Symptoms (Recalled from RN notes): No Skin Symptoms (Recalled from RN notes): No MS Symptoms (Recalled from RN notes): Yes (L hand middle finger pain and bruising at nail) Functional Status (Recalled from RN notes): na - History of Present Illness Provider Complaint: He states that 2 days ago he got his left middle finger caught in his car door. He has a hematoma beneath the nail and he states that it hurts to b
[2021-06-01 13:36] VITALS: BP 129/75; PULSE 96; RESP 16; TEMP 36.6
== END 2021-06-01 13:44 | disposition home or self-care (01) ==
PROVIDERS: Emergency Provider Nurse Practitioner Family; PCP Physician Assistant
DX: S67.193A Crushing injury of left middle finger, initial encounter (principal); W23.1XXA Caught, crushed, jammed, or pinched between stationary objects, initial encounter; F17.290 Nicotine dependence, other tobacco product, uncomplicated
CPT/HCPCS: 73130; 99202; G0463

== ENCOUNTER 2021-07-10 15:42 | Emergency (ER) | payer BC, SELFPAY ==
[2021-07-10 15:43] VITALS: BP 125/79; PULSE 73; RESP 14; TEMP 37; O2SAT 97; BMI 20.9
[2021-07-10 15:49] VITALS: BP 125/79; PULSE 63; O2SAT 97
--- NOTE | 2021-07-10 15:55 | CT_ITS ---
PROCEDURE: CT ABDOMEN PELVIS WO CON CLINICAL INDICATION: RUQ pain, N/V COMPARISON: CT CT ABDOMEN PELVIS W CON from 05/01/2021 TECHNIQUE: Axial images obtained with sagittal and coronal reformats. All CT scans at the facility use one or more dose reduction, viz: automated exposure control, ma/kV adjustment per patient size (including targeted exams where dose is matched to indication, i.e. head), or iterative reconstruction technique. FINDINGS: LOWER THORAX: No acute finding ABDOMEN & PELVIS: There may be a small gallstone present and 3 mm. The liver spleen, adrenal glands, and pancreas have an unremarkable appearance. No definite renal calculi. There is some slight hyper density of the medullary region on the right kidney. No ureteral calculi. No intestinal obstruction or free air. The appendix is not clearly delineated. No secondary signs of appendicitis. Multiple unopacified bowel loops in the abdomen or pelvis which could obscure or mimic pathology. If symptoms persist, consider repeat exam with IV and oral contrast.. There are few scattered small inguinal lymph nodes. No acute bony findings. IMPRESSION: No definite acute finding. Possible cholelithiasis Multiple unopacified bowel loops in the abdomen or pelvis which could obscure or mimic pathology. If symptoms persist, consider repeat exam with IV and oral contrast. Dictated by: Ross Shah MD 07/10/2021 16:40 Ross Shah MD in [facility] 07/10/2021 16:40
--- NOTE | 2021-07-10 16:16 | PC.NURSE ---
Urine sent to lab and pt to CT
[2021-07-10 16:17] LABS: Microscopic, Urine URINE MICROSCOPIC (MICROSCOPIC)
[2021-07-10 16:21] LABS: Basophils # 0.1 K/mm3 (0-0.2); Basophils % 0.9 % (0.1-2.0); Eosinophils # 0.3 K/mm3 (0.0-0.4); Hematocrit 44.4 % (42.0-52.0); Hemoglobin 15.2 g/dL (14.1-18.0); Lymphocytes # 1.7 K/mm3 (0.7-4.5); Lymphocytes % 24.6 % (10-50); Mean Corpuscular HGB Conc 34.2 g/dL (31.8-35.4); Mean Corpuscular Hemoglobin 31.7 pg (27.0-31.2); Mean Corpuscular Volume 92.8 fl (80-94); Mean Platelet Volume 7.9 fl (7.4-10.4); Monocytes # 0.5 K/mm3 (0.1-1.0); Monocytes % 7.3 % (1.7-9.3); Neutrophils # 4.2 K/mm3 (1.8-7.8); Neutrophils % 63.1 % (37.0-80.0); Platelet Count 179 K/mm3 (142-424); Red Blood Count 4.79 M/mm3 (4.60-6.20); Red Cell Distribution Width 13.7 % (11.5-17.5); White Blood Count 6.7 K/mm3 (4.5-13.0)
[2021-07-10 16:23] LABS: Chloride 105 mmol/L (98-107)
[2021-07-10 16:24] LABS: Appearance,Urine CLEAR (Clear); Blood, Urine Negative (Negative); Color,Urine YELLOW (Yellow); Glucose,Urine (UA) Negative (Negative); Ketones,Urine Negative (Negative); Leukocyte Esterase,Urine Negative (Negative); Nitrate,Urine Negative (Negative); Protein,Urine Negative (Negative); Specific Gravity, Urine >= 1.030 (1.005-1.030); Urobilinogen,Urine 0.2 EU/dl (0.2)
[2021-07-10 16:24] LABS: Potassium 3.7 mmoL/L (3.5-5.1); Sodium 139 mmol/L (136-145)
[2021-07-10 16:26] LABS: Alanine Aminotransferase 28 U/L (12-78); Alkaline Phosphatase 87 U/L (38-126); Amylase 70 U/L (30-110); Anion Gap 12.7 mEq/L (5-15); Aspartate Amino Transferase 42 U/L (17-59); Bilirubin,Total 2.5 mg/dl (0.2-1.3); Blood Urea Nitrogen 13 mg/dl (9-20); Carbon Dioxide 25 mmol/L (22.0-30.0); Creatinine Clearance Estimated 107 mL/min (50-200); Estimated Glomerular Filt Rate 85 ml/min (>60); GFR (African American) 103 ML/MIN (>60); Glucose 72 mg/dl (74-100)
[2021-07-10 16:27] LABS: Albumin Level 4.5 g/dl (3.5-5.0); Albumin/Globulin Ratio 1.5 (1.1-1.8); Calcium 9.2 mg/dl (8.4-10.2); Globulin 3.1 g/dL (1.3-3.2); Lipase 26 U/L (23-300); Total Protein,Serum 7.6 g/dl (6.3-8.2)
[2021-07-10 16:28] LABS: Bilirubin,Urine 1+ (Negative)
[2021-07-10 16:45] VITALS: BP 125/77; PULSE 55; O2SAT 98
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
--- NOTE | 2021-07-10 17:52 | PC.NURSE ---
Pt to rad.
--- NOTE | 2021-07-10 18:07 | PC.NURSE ---
Pt returned from [facility]
[2021-07-10 18:27] VITALS: BP 123/75; PULSE 79; RESP 14; TEMP 36.8; O2SAT 97
== END 2021-07-10 18:29 | disposition home or self-care (01) ==
PROVIDERS: Emergency Provider Internal Medicine; PCP Nurse Practitioner Family
DX: K59.00 Constipation, unspecified (principal); F17.290 Nicotine dependence, other tobacco product, uncomplicated
CPT/HCPCS: 74176; 76705; 80053; 81001; 82150; 83690; 85025; 99282